=== PATIENT | male | born 1980 | race Caucasian/White ===

== ENCOUNTER 2020-05-08 16:41 | Inpatient (IN) | payer MEDICARE, MEDICAID, SELFPAY ==
[2020-05-08] VITALS (17 sets, daily range): BP systolic 110–162; BP diastolic 55–112; PULSE 112–143; RESP 14–36; TEMP 36.4; O2SAT 93–100
--- NOTE | ~2020-05-08 | XR_ITS ---
EXAMINATION: XR chest 1V portable INDICATION: Shortness of breath TECHNIQUE: Portable AP chest at 1717 hours COMPARISON: None available FINDINGS: There are diffuse, patchy opacities in the lungs. No pleural effusion or pneumothorax is id entified. The cardiomediastinal silhouette is normal. Surgical changes are noted in the lower cervica l spine. IMPRESSION: 1. Diffuse lung disease, likely pneumonia. Reviewed, dictated and finalized at location A. HANDLER OR TRAINER
--- NOTE | 2020-05-08 16:55 | ECG_ITS ---
Measurements Intervals [place] Rate: 119 P: 72 NE: 116 QRS: 24 QRSD: 98 T: 49 QT: 336 QTc: 473 Interpretive Statements SINUS TACHYCARDIA POSSIBLE LEFT ATRIAL ENLARGEMENT INCOMPLETE RIGHT BUNDLE BRANCH BLOCK BASELINE ARTIFACT- I, II, III, AVR, AVL, AVF, V4-V6 ABNORMAL ECG Electronically Signed On 05-08-2020 20:20:08 INSURANCE ACCOUNT MANAGER by Lm Yee D.O.
[2020-05-08 17:14] LABS: Alveolar/Arterial O2 Gradient 36.1 mmHg; Base Excess ABG -6.4 mEq/l (+/-2.0); Fractional Inspired Oxygen 21 %; HCO3 ABG 15.2 mEq/l (22.0-26.0); Oxygen Content ABG 17.9 %vol (16.0-22.0); Oxygen Saturation ABG 97.3 % (95.0-100.0); Oxyhemoglobin 95.6 % THb (90.0-100.0); PO2 ABG 87.6 mmHg (80.0-100.0); PO2 FiO2 Ratio Arterial Blood 4.17 %; Total Hemoglobin 13.3 g/dL (12.0-18.0); pH ABG 7.463 (7.350-7.450)
[2020-05-08 17:15] LABS: Device ROOM AIR; PCO2 ABG 21.7 mmHg (35.0-45.0); Site Drawn RIGHT BRACHIAL
--- NOTE | 2020-05-08 17:26 | ED.GENADULT ---
HPI - General Adult General Chief complaint: Psychiatric Symptoms <Gerardo Martínez PA-C - Last Filed: 05/08/20 18:58> Stated complaint: anxiety/huffing <SARA Chaparro Last Filed: 05/08/20 18:58> Time Seen by Provider: 05/08/20 16:44 <SARA Chaparro Last Filed: 05/08/20 18:58> Source: patient and EMS <SARA Chaparro Last Filed: 05/08/20 18:58> Mode of arrival: ambulatory <SARA Chaparro Last Filed: 05/08/20 18:58> Limitations: no limitations <SARA Chaparro Last Filed: 05/08/20 18:58> History of Present Illness HPI narrative: Patient is a 39-year-old male who presents per EMS for altered mentation or erratic behavior at a local store was found to have an upward of 60 cans of electronics duster patient on arrival with a GCS of 15 alert and oriented x3 with normal mentation noting history of anxiety and longstanding history of huffing. Patient denies any pain patient is trembling and nervous appearing upon arrival patient also noting that he is suicidal and his intention was to kill himself by huffing patient denies other means of self-harm or attempts patient notes he has required psych hospitalization in the past. Patient does note having a cough <SARA Chaparro Last Filed: 05/08/20 18:58> Related Data Home medications: Home Medications Medication Instructions Recorded Confirmed amlodipine 5 mg PO DAILY 05/08/20 05/08/20 baclofen 10 mg PO HS 05/08/20 05/08/20 clonazepam 1 mg PO DAILY 05/08/20 05/08/20 fluoxetine 20 mg PO DAILY 05/08/20 05/08/20 folic acid 1 mg PO DAILY 05/08/20 05/08/20 gabapentin 400 mg PO TID 05/08/20 05/08/20 imipramine HCl 25 mg PO HS 05/08/20 05/08/20 lisinopril 20 mg PO DAILY 05/08/20 05/08/20 lithium carbonate 150 mg PO DAILY 05/08/20 05/08/20 lurasidone [Latuda] 80 mg PO HS 05/08/20 05/08/20 pantoprazole 40 mg PO DAILY 05/08/20 05/08/20 propranolol 10 mg PO DAILY 05/08/20 05/08/20 quetiapine 100 mg PO HS 05/08/20 05/08/20 ropinirole 3 mg PO HS PRN 05/08/20 05/08/20 <Gerardo Martínez PA-C - Last Filed: 05/08/20 18:58> Allergies/adverse reactions: Allergies Allergy/AdvReac Type Severity Reaction Status Date / Time No Known Allergies Allergy Unverified 03/18/17 21:06 <Gerardo Martínez PA-C - Last Filed: 05/08/20 18:58> Review of Systems Review of Systems: All systems reviewed & are unremarkable except as noted in HPI and below <Gerardo Martínez PA-C - Last Filed: 05/08/20 18:58> PMFSH Past Medical History Medical History: Medical History (Updated 05/08/20 @ 19:55 by Hi Pascal MD) Anxiety H/O: HTN (hypertension) Huffing Psychiatric hospitalization Suicidal ideation <Gerardo Martínez PA-C - Last Filed: 05/08/20 18:58> Surgical History Surgical History: Surgical History (Updated 05/08/20 @ 19:37 by Hi Pascal MD) History of back surgery <Gerardo Martínez PA-C - Last Filed: 05/08/20 18:58> Social History Social History: Social History Smoking status: Never smoker Alcohol intake: never Substance use: never Living arrangements: with family Spiritual care concerns: No <Gerardo Martínez PA-C Last Filed: 05/08/20 18:58> Exam Narrative: Exam Narrative: GENERAL: Well-appearing, well-nourished, and in no acute distress. HEAD: Normocephalic, atraumatic. EYES: PERRLA and EOMI. ENT: Nares clear, no rhinorrhea or epistaxis. Mucous membranes moist. CHEST: Clear to auscultation. No respiratory distress. No wheezes rales or rhonchi HEART: Tachycardic rate and regular rhythm. No murmur heard. Normal peripheral pulses. ABDOMEN: Soft, nontender, nondistended EXTREMITIES: Normal range of motion. No edema. SKIN: Warm, dry, no rash. NEURO: No focal deficits. Alert and oriented x3. PSYCH: Anxious with normal affect <Gerardo Martínez PA-C - Last Filed: 05/08/20 18:58>
--- NOTE | 2020-05-08 17:35 | PC.NURSE ---
poison control notified. informed to watch for resp issues if pt used alot. if pt chronic user pt can have anxiety and tremors. informed that pt is experiencing this already. advised to draw labs for co ingestion. already in progress. will continue to monitor.
[2020-05-08 17:40] LABS: Alanine Aminotransferase 38 U/L (4-50); Alkaline Phosphatase 110 U/L (38-126); Anion Gap 19 mmol/L (8-16); Aspartate Amino Transferase 57 U/L (17-59); Bilirubin,Total 0.7 mg/dL (0.2-1.3); Blood Urea Nitrogen 31 mg/dL (9-20); Calcium 8.8 mg/dL (8.4-10.2); Carbon Dioxide 18 mmol/L (22-30); Chloride 110 mmol/L (98-107); Estimated Glomerular Filt Rate 40; Glucose 158 mg/dL (75-110); Potassium 4.1 mmol/L (3.4-5.0); Sodium 147 mmol/L (137-145)
[2020-05-08 17:41] LABS: Add Urine Microscopic? YES; Appearance Urine Clear (Clear); Bilirubin Urine Negative (Negative); Blood Urine 1+ (Negative); Color Urine Straw (Yellow); Glucose Urine UA Negative (Negative); Ketones Urine Trace mg/dL (Negative); Leukocyte Esterase Ur Negative LEU/UL (Negative); Mucus Urine Rare /lpf; Nitrate Urine Negative (Negative); Protein Urine 1+ mg/dL (Negative); Specific Grav Ur 1.011 (1.001-1.035); Urobilinogen Urine Negative mg/dL (<2.0); WBC Urine 0-3 /hpf
[2020-05-08 17:59] LABS: Amphetamine Screen Urine Negative (Negative); Barbiturate Screen Urine Negative (Negative); Benzodiazepines Screen Urine Negative (Negative); Cannabinoid Screen Urine Negative (Negative); Cocaine Screen Urine Negative (Negative); Methadone Screen Urine Negative (Negative); Opiate Screen Urine Negative (Negative); Phencyclidine Screen Urine Negative (Negative)
[2020-05-08] MEDS: SODIUM CHLORIDE 0.9% IV 1,000 ML 999 ML IV CONT ×2 (18:00→18:01)
[2020-05-08] MEDS: LORazepam INJ (*CRX) 2 MG/ML VIAL 1 MG IV PUSH ×2 (18:01→22:44)
[2020-05-08 18:35] LABS: Basophils Absolute Auto 0.1 K/mm3 (0.0-0.1); Basophils Percent Auto 0.2 % (0.2-1.2); Hematocrit 39.7 % (42.0-52.0); Hemoglobin 12.5 g/dL (14.0-18.0); Immature Granulocyte Absolute 0.09 K/mm3 (0.00-0.031); Immature Granulocyte Percent A 0.4 % (0-0.5); Lymphocytes Absolute Auto 0.53 K/mm3 (0.9-3.2); Lymphocytes Percent Auto 2.6 % (18.3-44.2); Mean Corpuscular HGB Conc 31.5 g/dl (32-36); Mean Corpuscular Hemoglobin 25.9 pg (26-34); Mean Corpuscular Volume 82.2 fl (80-100); Mean Platelet Volume 11.2 fl (7.4-10.4); Monocytes Absolute Auto 1.3 K/mm3 (0.1-0.6); Monocytes Percent Auto 6.2 % (2.6-8.5); Neutrophils Absolute Auto 18.5 K/mm3 (1.3-6.7); Neutrophils Percent Auto 90.6 % (45.5-73.1); Platelet Count Result 296 k/mm3 (150-375); Red Blood Count 4.83 M/mm3 (4.6-6.20); Red Cell Distribution Width 15.9 % (11.5-14.5); White Blood Count 20.5 K/mm3 (4.5-10.0)
[2020-05-08 18:46] LABS: Lactic Acid Reflex 1.1 mmol/L (0.7-2.1)
[2020-05-08 19:16] LABS: Ethanol < 10 mg/dL (<10)
[2020-05-08 19:17] LABS: Creatine Kinase 985 U/L (55-170); Magnesium 2.5 mg/dL (1.6-2.3); Phosphorus 2.4 mg/dL (2.5-4.5)
[2020-05-08 19:25] LABS: Acetaminophen < 10 ug/mL (10-30); Salicylate < 1.0 mg/dL (2-20)
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
--- NOTE | 2020-05-08 19:34 | PC.NURSE ---
Assumed care of pt report from Codie. VR
[2020-05-08] MEDS: LORazepam INJ (*CRX) 2 MG/ML VIAL 0.5 MG IV PUSH (21:33)
[2020-05-08] MEDS: LACTATED RINGERS 1,000 ML 150 ML IV CONT (21:33)
[2020-05-08] MEDS: FAMOTIDINE 20 MG/2 ML VIAL IV PUSH (21:33)
--- NOTE | 2020-05-08 21:42 | PC.NURSE ---
This patient, Rafita Daniel, was admitted to Intensive Care Unit-10. Patient/family oriented to hospital policies and general routines including ID bracelet, bed and alarms, visiting hours, pain management, procedures, bathroom and other care routines, personal items, smoking policy, room service/diet, and visiting hours. Information on how to activate the Rapid Response Team has been discussed. Patient/Family are encouraged to report perceived risks to care and to ask questions if they do not understand what they are told or what they should do.
[2020-05-09] VITALS (13 sets, daily range): BP systolic 117–143; BP diastolic 78–109; PULSE 95–120; RESP 15–31; TEMP 36.8–37.7; O2SAT 93–98
[2020-05-09] MEDS: LACTATED RINGERS 1,000 ML 150 ML IV CONT (03:08)
[2020-05-09] MEDS: LORazepam INJ (*CRX) 2 MG/ML VIAL 0.5 MG IV PUSH (03:08)
[2020-05-09 05:27] LABS: Basophils Absolute Auto 0.1 K/mm3 (0.0-0.1); Basophils Percent Auto 0.6 % (0.2-1.2); Eosinophils Percent Auto 0.1 % (0-4.4); Hemoglobin 10.4 g/dL (14.0-18.0); Immature Granulocyte Absolute 0.05 K/mm3 (0.00-0.031); Immature Granulocyte Percent A 0.4 % (0-0.5); Mean Corpuscular HGB Conc 31.5 g/dl (32-36); Mean Corpuscular Hemoglobin 25.6 pg (26-34); Mean Corpuscular Volume 81.3 fl (80-100); Mean Platelet Volume 11.6 fl (7.4-10.4); Monocytes Absolute Auto 1.2 K/mm3 (0.1-0.6); Monocytes Percent Auto 9.6 % (2.6-8.5); Neutrophils Absolute Auto 9.5 K/mm3 (1.3-6.7); Neutrophils Percent Auto 79.3 % (45.5-73.1); Platelet Count Result 229 k/mm3 (150-375); Red Blood Count 4.06 M/mm3 (4.6-6.20); Red Cell Distribution Width 15.9 % (11.5-14.5)
[2020-05-09 05:46] LABS: Anion Gap 9 mmol/L (8-16); Blood Urea Nitrogen 23 mg/dL (9-20); Calcium 8.1 mg/dL (8.4-10.2); Carbon Dioxide 21 mmol/L (22-30); Chloride 109 mmol/L (98-107); Estimated CRCL calculation 57 ml/min; Estimated Glomerular Filt Rate 49; Glucose 101 mg/dL (75-110); Potassium 3.7 mmol/L (3.4-5.0); Sodium 139 mmol/L (137-145)
--- NOTE | 2020-05-09 07:30 | PC.NURSE ---
Updated poison control on vital signs and status,
[2020-05-09] MEDS: amLODIPine BESYLATE 5 MG TABLET PO (08:52)
[2020-05-09] MEDS: FAMOTIDINE 20 MG/2 ML VIAL IV PUSH ×2 (08:52→21:35)
--- NOTE | 2020-05-09 11:12 | PC.NURSE ---
Updated [place] pharmacist from poison control on patient medical status. Patient medically cleared per Dr. Fuentes
--- NOTE | 2020-05-09 11:40 | PM.IMPN ---
Progress Note: A&P Assessment and Plan (1) Suicidal ideation: Code(s): R45.851 - Suicidal ideations Status: Acute Assessment and Plan: Re started home meds Pending evaluation by psychs (2) Huffing: Code(s): F18.10 - Inhalant abuse, uncomplicated Status: Acute Assessment and Plan: Patient states that this makes him pass out (3) Suspected 2019 novel coronavirus infection: Code(s): Z20.822 - Contact with and (suspected) exposure to COVID-19 Status: Acute Assessment and Plan: Awaiting Covid 19 PCR. (4) Cough: Code(s): R05 - Cough Status: Acute Assessment and Plan: Likely secondary to inhalation of substance Resolved. (5) Acute dehydration: Code(s): E86.0 - Dehydration Status: Acute Assessment and Plan: Started po diet Push for oral fluids IV fluids have been discontinued (6) Acute kidney injury: Code(s): N17.9 - Acute kidney failure, unspecified Status: Acute Assessment and Plan: Slight elevation Bun/Cr Repeat BMP shows improvement Likely to be pre renal azotemia (7) Rhabdomyolysis: Qualifiers: Rhabdomyolysis type: non-traumatic Qualified Code(s): M62.82 - Rhabdomyolysis Code(s): M62.82 - Rhabdomyolysis Status: Acute Assessment and Plan: CPK is slightly elevated (8) Homelessness: Code(s): Z59.0 - Homelessness Status: Acute Assessment and Plan: Care coordination can give information regarding shelters. (9) Inhalation of gaseous substance: Code(s): T59.91XA - Toxic effect of unspecified gases, fumes and vapors, accidental (unintentional), initial encounter Status: Acute Assessment and Plan: Patient medically cleared to be evaluated by psychs Subjective Date/time seen: 05/09/20 11:40 Patient states that he feels fine Review of Systems Review of Systems: ROS unobtainable: Yes unobtainable due to medical condition (Patient with depression.) Exam Narrative: Exam Narrative: Lying in bed. Const: General: cooperative, well developed, alert, awake, Physically active, acute distress and other (Tremors.) Nutritional Appearance: average body habitus and well nourished Orientation/consciousness: patient oriented x3 Other: Tremors HENMT: Head: normal to inspection and normocephalic Ears: hearing grossly normal bilaterally General nose exam: Normal external nose present Face and sinus: normal facial exam Eyes: General: appearance normal, both eyes and all related structures Pupils: Equal, round and reactive pupils present EOM: EOMs intact bilaterally Neck: Neck: no lymphadenopathy, supple and no JVD Resp: Effort & Inspection: normal respiratory effort and able to speak in complete sentences Auscultation: clear to auscultation bilaterally Cardio: Jugular venous distension: no JVD Rate: regular rate and tachycardic (sinus) Rhythm: regular rhythm GI: GI Palp: Yes Soft to palpation and Yes No hepatosplenomegaly present Skin: Lesions: other (scratches in torso) Neuro: General: patient oriented x3, CN's II-XI intact bilaterally and other (tremors) Cranial nerves: Yes CN's II-XII intact bilaterally and Yes Equal, round and reactive pupils present Cognition (Neuro): normal cognition Speech: normal speech Gait exam (Neuro): Normal gait present Motor exam (neuro): 5/5 motor strength present throughout Sensory Exam: normal sensation Extrem: General: no pedal edema Objective Data Vital Signs Vital Signs: Vital Signs - 24 hr 05/08/20 17:00 05/08/20 17:02 05/08/20 17:03 Temperature 97.6 F Pulse Rate 115 H 118 H 115 H Pulse Rate [Monitor] Respiratory Rate 20 14 14 Blood Pressure 162/108 H 143/104 H Pulse Oximetry 98 97 99 05/08/20 17:15 05/08/20 17:16 05/08/20 17:32 Temperature Pulse Rate 125 H 114 H 121 H Pulse Rate [Monitor] Respiratory Rate 23 H 15 19 Blood Pressure 150/112 H Pulse Oxi
[2020-05-09] MEDS: clonazePAM (*CRX) 0.5 MG TABLET 1 MG PO (12:23)
[2020-05-09] MEDS: FLUoxetine HCL 20 MG CAPSULE PO (12:24)
[2020-05-09] MEDS: GABAPENTIN 400 MG CAPSULE PO ×2 (12:24→16:53)
[2020-05-09] MEDS: PROPRANOLOL HCL 10 MG TABLET PO (12:25)
[2020-05-09] MEDS: FOLIC ACID 1 MG TABLET PO (12:25)
[2020-05-09] MEDS: LITHIUM CARBONATE 150 MG CAPSULE PO (12:25)
[2020-05-09] MEDS: PANTOPRAZOLE 40 MG TABLET PO (12:25)
[2020-05-09] MEDS: ACETAMINOPHEN 500 MG TABLET 1000 MG PO (16:53)
[2020-05-09] MEDS: SILVERGEL (ELTA) 45 ML 1 APPLIC TOPICAL (16:54)
[2020-05-09 19:08] LABS: SARS-CoV-2 RNA PCR Negative
[2020-05-09] MEDS: QUEtiapine FUMARATE 100 MG TABLET PO (21:35)
[2020-05-09] MEDS: DOXYCYCLINE HYCLATE 100 MG TABLET PO (21:35)
[2020-05-09] MEDS: IMIPRAMINE HCL 25 MG TABLET PO (21:35)
[2020-05-09] MEDS: BACLOFEN 10 MG TABLET PO (21:35)
[2020-05-10] VITALS: BP 106/76; PULSE 97; RESP 18; O2SAT 95
[2020-05-10 02:00] VITALS: PULSE 93
[2020-05-10 06:00] VITALS: PULSE 94
--- NOTE | 2020-05-10 06:47 | PC.NURSE ---
Contacted Crisis to update on patient condition for further evaluation. Crisis to evaluate patient.
[2020-05-10 08:00] VITALS: BP 116/94; PULSE 102; RESP 12; TEMP 36.8; O2SAT 96
--- NOTE | 2020-05-10 08:06 | WPDCDIQUERY2 ---
CDI Query Clarification Request -Sepsis, source may be pulmonary given his cough and CXR findings documented in H&P -Piperacillin/Tazobactum ordered. -Sepsis not on problem list Please clarify if sepsis was ruled in or ruled out. <Stephanie Anderson RN - Last Filed: 05/10/20 08:16> Clarified Diagnosis (1) Sepsis: Qualifiers: Acute renal failure type: unspecified Sepsis acute organ dysfunction status: with acute organ dysfunction Sepsis type: sepsis due to unspecified organism Severe sepsis acute organ dysfunction type: acute renal failure Severe sepsis shock status: without septic shock Qualified Code(s): A41.9 - Sepsis, unspecified organism; R65.20 - Severe sepsis without septic shock; N17.9 - Acute kidney failure, unspecified <Stephanie Anderson RN - Last Filed: 05/10/20 08:16> Code(s): A41.9 - Sepsis, unspecified organism <Stephanie Anderson RN - Last Filed: 05/10/20 08:16> Status: Acute <Stephanie Anderson RN - Last Filed: 05/10/20 08:16> Assessment and Plan: Sepsis has been ruled out. <Shayla Fuentes MD - Last Filed: 05/10/20 12:12>
[2020-05-10] MEDS: GABAPENTIN 400 MG CAPSULE PO (09:22)
[2020-05-10] MEDS: rOPINIRole HCL 1 MG TABLET 3 MG PO (09:23)
[2020-05-10] MEDS: FOLIC ACID 1 MG TABLET PO (09:23)
[2020-05-10] MEDS: FAMOTIDINE 20 MG/2 ML VIAL IV PUSH (09:23)
[2020-05-10] MEDS: DOXYCYCLINE HYCLATE 100 MG TABLET PO (09:23)
[2020-05-10] MEDS: FLUoxetine HCL 20 MG CAPSULE PO (09:23)
[2020-05-10 09:24] VITALS: PULSE 102
[2020-05-10] MEDS: LITHIUM CARBONATE 150 MG CAPSULE PO (09:24)
[2020-05-10] MEDS: PANTOPRAZOLE 40 MG TABLET PO (09:24)
[2020-05-10] MEDS: amLODIPine BESYLATE 5 MG TABLET PO (09:24)
[2020-05-10] MEDS: PROPRANOLOL HCL 10 MG TABLET PO (09:24)
[2020-05-10] MEDS: SILVERGEL (ELTA) 45 ML 1 APPLIC TOPICAL (09:25)
[2020-05-10] MEDS: clonazePAM (*CRX) 0.5 MG TABLET 1 MG PO (09:37)
--- NOTE | 2020-05-10 11:25 | PC.NURSE ---
Crisis employee, Leighann, to bedside.
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
== END 2020-05-10 13:00 | disposition home or self-care (01) | DRG 918 ==
LOC: ANHED 19:22 → ANHICU 05-09 08:19
PROVIDERS: Emergency Medicine Emergency Medical Services; Admitting Provider Internal Medicine; Emergency Provider General Practice; Visit Provider Internal Medicine
DX: T59.892A Toxic effect of other specified gases, fumes and vapors, intentional self-harm, initial encounter (principal); R45.851 Suicidal ideations; N17.9 Acute kidney failure, unspecified; M62.82 Rhabdomyolysis; E86.0 Dehydration; Z20.822 Contact with and (suspected) exposure to COVID-19; F18.10 Inhalant abuse, uncomplicated; I10 Essential (primary) hypertension; F41.9 Anxiety disorder, unspecified; Z59.0 Homelessness
CPT/HCPCS: 36415; 36600; 71045; 80048; 80053; 80307; 81001; 82550; 82805; 83605; 83735; 84100; 84443; 85025; 87040; 93005; 96365; 96375; 99285; A9270; C9803; J2060; J2543; J7030; J7120; U0003; U0005